=== PATIENT | male | born 1990 | race Caucasian/White ===

== ENCOUNTER 2025-03-31 23:07 | Emergency (ER) | payer OTHER, SELFPAY ==
[2025-03-31 23:15] VITALS: BP 160/84
--- NOTE | 2025-04-01 00:49 | ED.MUSCINJ ---
HPI-Injury
General
Chief Complaint: Musculo-Skeletal Complaint
Source: patient
Exam Limitations: none
Time Seen by Provider: 04/01/25 00:46
Nursing documentation reviewed up to this point in time: agreed with
History of Present Illness-Injury
Initial Injury comments:
Pleasant 34-year-old male presents with left wrist pain. He states that it began around 3 days ago. It has progressively been worsening. Denies any other injury. He states that the pain came on when he brought a 'cheap [employer] smart watch '. He
states that when he put his [employer] Watch back on the pain stopped getting worse but is still present. Denies numbness or tingling. Denies any elbow pain. Reports no finger pain
Review of Systems
Review of Systems
Allergies reviewed?: Yes
All Other Systems: ROS reviewed and negative except as documented in HPI and ROS
Constitutional: Reports no symptoms
EENT: Reports no symptoms
Respiratory: Reports no symptoms
Cardiac: Reports no symptoms
ABD/GI: Reports no symptoms
: Reports no symptoms
Musculoskeletal: Reports muscle pain; Denies joint pain, joint swelling, muscle stiffness or neck pain
Skin: Reports no symptoms
Neurological: Reports no symptoms
Endocrine: Reports no symptoms
Hematologic/Lymphatic: Reports no symptoms
Psychiatric: Reports no symptoms
Phy Exam
General Physical Exam
General Presentation: well appearing and mild distress
General age: appears stated age
General Skin: warm and dry
General Habitus: normal
ENT Exam
ENT Exam: EOMI
Pulmonary Exam
Pulmonary Exam: no respiratory distress and no cough
Neurological Exam
Neurological Exam: alert and oriented x3
Musculoskeletal Exam
Musculoskeletal Exam: full ROM (Tenderness with supination of the wrist. No obvious biceps tear.)
Skin Exam
Skin Exam: normal color, warm/dry and no rash (No evidence of rash or erythema)
Psychiatric Exam
Psychiatric Exam: normal mood/affect
Injury Course
Orders/Labs/Results
Orders:
Orders
03/31/25 23:18
Forearm, Left 2 View [CR Forearm - Left 2 View] Urgent
Comment:
Reason For Exam: PAIN FROM WRIST SHOOTING UP ARM, DENIES INJURY
*Pulse Oximetry
Patient hypoxic: no (97% on room air)
*Critical Care Note
Total Time (30-74mins, 75-104mins- exclusive of procedures): Not Applicable
Update Note
Update Note:
This happened after patient was wearing a '[employer] Smart large 'for several days. He states that the pain was worsening but now has plateaued. There is no evidence of rash or allergic reaction. He does have pain with supination but I do not
see any obvious biceps tear. Biceps strength is normal. He states that he had a fracture in the forearm in the past and he states it feels similar. I do not see any obvious osseous abnormality on x-ray. No tenderness in the elbow joint or the
fingers. No shoulder tenderness. Good distal pulses. Skin is warm and dry.
Will apply a Velcro wrist splint. Prescribed Motrin. Follow-up with Ortho as needed
ED Attending Note
-
Portions of this chart may have been created with voice recognition software.� Occasional wrong word or��sound alike� substitutions may have occurred due to the inherent limitations of voice recognition software.
Discharge Plan
Departure
Patient Disposition: Home (Routine Discharge)
Date of Disposition: 04/01/25
Time of Disposition: 00:53
Patient with high blood pressure during this ER visit?: Yes
Condition: Good
Discharge Problem:
Acute wrist pain
Instructions: Muscle and Bone Pain (DC), Using Cold for Pain, Splint Care, BLOOD PRESSURE
Prescriptions:
New
diclofenac sodium 75 mg tablet,delayed release (DR/EC)
75 mg PO BID Qty: 10 0RF
Activity Restrictions/Additional Instructions:
Your prescriptions were sent electronically to the pharmacy that you specified.
Thank You for choosing [facility].
It was a pleasure meeting you and taking part in your care. We hope for your continued healing and wellness.
Please read discharge instructions in their entirety. However, they are for general education and may not describe your exact diagnosis at discharge. Information on your ER visit and medical conditions were discussed with you along with appropriate
follow up information...
If indicated, please take your medications as instructed and indicated on discharge paperwork.
Please schedule a follow up appointment as directed. Call to schedule an appointment
Please return to the emergency department with ANY change in, persisting, or worsening of symptoms. If any of your symptoms do not improve, or persist, or become more severe within 6-12 hours, please return to the emergency department for further
care.
Please return to the emergency department if you develop a headache, neck pain/stiffness, fever greater than 100.4F, chest pain, shortness of breath, persistent nausea, vomiting, slurred speech, difficulty walking, numbness/tingling, weakness, signs
of infection or any other symptoms that are worrisome to you.
If you have any questions or concerns please do not hesitate to call the Hospital at or E-mail me directly at [email or web address]
Interventions
Interventions:
*Risk Screen - Suicide Last Done: 03/31/25 23:15
*Neglect/Abuse Screening Last Done: 03/31/25 23:15
ED-Musculoskeletal Assessment Last Done: 04/01/25 00:48
Discharge Date and Time
Print Language: ICELANDIC
[2025-04-01] MEDS: MOTRIN 600 MG PO (01:16)
[2025-04-01 01:18] VITALS: BP 160/93
== END 2025-04-01 01:20 | disposition home or self-care (01) ==
LOC: EMR 23:07
PROVIDERS: EMERGENCY PHYSICIAN Student in an Organized Health Care Education/Training Program; FAMILY PHYSICIAN Family Medicine Hospice and Palliative Medicine
DX: M25.532 Pain in left wrist (principal); M79.18 Myalgia, other site; R03.0 Elevated blood-pressure reading, without diagnosis of hypertension; Z86.16 Personal history of COVID-19
CPT/HCPCS: 99283; 29125; 73090